=== PATIENT | female | born 1945 | race Asian ===

== ENCOUNTER 2016-09-27 13:22 | Outpatient (CLI) | payer MEDICARE ==
--- NOTE | 2016-09-28 13:15 | Mammography Report ---
DIGITAL SCREENING MAMMOGRAM: 09/27/2016 CLINICAL INDICATION: A 70-year-old nulliparous patient with history of benign left breast biopsy for screening. COMPARISON: 08/2015, 05/2014, 12/2011, 10/2010, 10/2009, 09/2008, 08/2007 TECHNIQUE: Routine CC and MLO projections were obtained of the breasts. FINDINGS: The breasts again demonstrate scattered fibroglandular densities bilaterally. Post-biopsy changes in the left upper outer quadrant are stable. A few punctate, typically benign calcification s are present. No suspicious masses, clustered microcalcifications, or regions of architectural dist ortion are identified. IMPRESSION: BENIGN FINDINGS. RECOMMENDATION: Routine annual screening unless otherwise clinically indicated. BIRADS CATEGORY 2 - BENIGN FINDINGS. STANDARD QUALIFYING STATEMENTS 1. This examination was reviewed with the aid of Computer-Aided Detection (CAD). 2. A negative or benign imaging report should not delay biopsy if clinically suspicious findings are present. Consider surgical consultation if warranted. More than 5% of cancers are not identified by i maging. 3. Dense breasts may obscure an underlying neoplasm. JOB #: [id number] EXT JOB #:[id number]
== END 2016-09-27 13:23 | disposition home or self-care (01) ==
LOC: DI.N 13:22
PROVIDERS: ATTEND Family Medicine
DX: Z12.31 Encounter for screening mammogram for malignant neoplasm of breast (principal)
CPT/HCPCS: 77067

== ENCOUNTER 2017-10-04 13:50 | Outpatient (CLI) | payer MEDICARE, OTHER ==
--- NOTE | 2017-10-04 14:41 | Mammography Report ---
Procedure Date: 10/04/2017 Accession Number: [id number] / [id number] Procedure: IRISH - Diagnostic Dig Bilat CPT Code: FULL RESULT: EXAM: Diagnostic Dig Bilat DATE: 10/04/2017 2:39 PM CLINICAL HISTORY: 71-year-old with diffuse left breast pain, history of benign left breast biopsy TECHNIQUE: Bilateral CC and MLO views, left true lateral view COMPARISON: 09/27/2016, 08/16/2015, 06/15/2014, 04/28/2013, 12/18/2011, 11/10/2010, 06/01/2010, 11/02/2009 FINDINGS: The breasts demonstrate heterogeneously dense fibroglandular parenchyma bilaterally. Punctate, typically benign calcifications are present. Biopsy marker in the left upper outer posterior breast is stable. No suspicious masses, clustered microcalcifications, or regions of architectural distortion are identified. IMPRESSION: Benign findings RECOMMENDATION: Recommend routine annual Screening mammography unless otherwise clinically indicated. BIRADS CATEGORY 2: Benign findings STANDARD QUALIFYING STATEMENTS: 1. This examination was reviewed with the aid of Computer-Aided Detection (CAD). 2. A negative or benign imaging report should not delay biopsy if clinically suspicious findings are present. Consider surgical consultation if warrented. More than 5% of cancers are not identified by imaging. 3. Dense breasts may obscure an underlying neoplasm.
== END 2017-10-04 13:51 | disposition home or self-care (01) ==
LOC: DI 13:50
PROVIDERS: ATTEND Family Medicine
DX: N64.4 Mastodynia (principal)
CPT/HCPCS: 77066

== ENCOUNTER 2018-03-14 06:06 | Day surgery (SDC) | payer MEDICARE, OTHER ==
[2018-03-14] MEDS ORDERED: PHENYLEPHRINE 2.5% OPHTH 2 ML DROPS ONE (06:30)
[2018-03-14] MEDS ORDERED: KETOROLAC 0.45% OPHTH DROPS ONE (06:30)
[2018-03-14] MEDS ORDERED: CYCLOPENTOLATE 1% OPHTH DROPS 2 ML ONE (06:31)
[2018-03-14] MEDS ORDERED: PROPARACAINE 0.5% OPHTH DROPS 15 ML ONE (06:31)
[2018-03-14] MEDS ORDERED: PHENYLEPHRINE 2.5% OPHTH 2 ML DROPS RIGHTEYE ONE (06:43)
[2018-03-14] MEDS ORDERED: PROPARACAINE 0.5% OPHTH DROPS 15 ML RIGHTEYE ONE ×2 (06:43→07:28)
[2018-03-14] MEDS ORDERED: KETOROLAC 0.45% OPHTH DROPS RIGHTEYE ONE (06:43)
[2018-03-14] MEDS ORDERED: CYCLOPENTOLATE 1% OPHTH DROPS 2 ML RIGHTEYE ONE (06:43)
[2018-03-14] MEDS ORDERED: TRIAMCIN/MOXIFLOX OPHTHALMIC 0.6 ML VIAL IO ONE ×3 (06:51→07:30)
[2018-03-14] MEDS ORDERED: EPINEPHrine 1 MG/ML AMP ONE (06:51)
[2018-03-14] MEDS ORDERED: BRIMONIDINE 0.2% OPHTH DROPS 5 ML ONE (06:52)
[2018-03-14] MEDS ORDERED: LACTATED RINGERS 500 ML IV ONE (06:52)
[2018-03-14] MEDS ORDERED: TIMOLOL 0.5% OPHTH DROPS ONE (06:52)
[2018-03-14] MEDS ORDERED: VANCOMYCIN OPHTHALMI 8MG/0.8ML 8 MG/0.8 ML SYRINGE IO ONE ×3 (06:52→07:29)
[2018-03-14] MEDS ORDERED: BSS/LIDOCAINE/EPINEPHRINE 1 ML SYRINGE ONE (06:52)
--- NOTE | 2018-03-14 06:59 | ANESTHESIA ---
Pre-Anesthesia VS, & Labs - Diagnosis Right eye senile combined cataract - Procedure Right eye cataract extraction with intraoocular lens implant Vital Signs: Temp Pulse Resp BP Pulse Ox 36.5 C 92 16 168/76 H 03/14/18 06:35 03/14/18 06:35 03/14/18 06:35 03/14/18 06:35 Height 5 ft Weight (kg) 63.3 kg - NPO >8 hours - Is Patient ?: No - Lab Results Current Lab Results: Laboratory Tests 03/14/18 06:49: POC Whole Bld Glucose 195 H Lab results reviewed: Yes Home Medications and Allergies Home Medications: Ambulatory Orders Metformin HCl 1,000 mg PO BID 03/14/18 glipiZIDE [Glipizide] 5 mg PO DAILY 03/14/18 Metformin HCl 1,000 mg PO BID 03/14/18 glipiZIDE [Glipizide] 5 mg PO DAILY 03/14/18 Allergies/Adverse Reactions: Allergies Allergy/AdvReac Type Severity Reaction Status Date / Time No Known Drug Allergies Allergy Verified 03/14/18 06:59 Anes History & Medical History - Anesthetic History Anesthesia Complications: reports: No previous complications - Medical History Cardiovascular: reports: None Pulmonary: reports: None Gastrointestinal: reports: GERD, Ulcers Urinary: reports: None Neuro: reports: None Musculoskeletal: reports: None Endocrine/Autoimmune: reports: Type 2 diabetes Blood Disorders: reports: None Skin: reports: None Smoking Status: Never smoker Psychosocial: reports: No issues indicated - Surgical History General: EGD Gynecologic: Tubal ligation, Hysterectomy, Oophrectomy Exam General: Alert, Oriented x3, Cooperative, No acute distress Dental: Partials Upper Mouth Openin Fingerbreadth Neck Mobility: Normal Mallampati classification: II Thyromental Distance: 4-6 cm Respiratory: Lungs clear, Normal breath sounds, No respiratory distress, No accessory muscle use Cardiovascular: Regular rate, Normal S1, Normal S2, No murmurs Mental/Cognitive Status: Alert/Oriented X3, Normal for patient Plan Anesthesia Type: MAC Consent for Procedure(s) Verified and Reviewed: Yes Code Status: Attempt Resuscitation ASA classification: 2-Mild systemic disease Is this case an emergency?: No
[2018-03-14] MEDS ORDERED: BRIMONIDINE 0.2% OPHTH DROPS 5 ML OPTH ONE (07:26)
[2018-03-14] MEDS ORDERED: TIMOLOL 0.5% OPHTH DROPS OPTH ONE (07:27)
[2018-03-14] MEDS ORDERED: EPINEPHrine 1 MG/ML AMP IR ONE (07:27)
[2018-03-14] MEDS ORDERED: CHONDR SULF/HYALURONATE SYRINGE IO ONE (07:27)
[2018-03-14] MEDS ORDERED: BSS/LIDOCAINE/EPINEPHRINE 1 ML SYRINGE IO ONE ×2 (07:27)
[2018-03-14] MEDS ORDERED: MIDAZOLAM 2 MG/2 ML VIAL IVP ONE (07:30)
[2018-03-14 08:04] VITALS: BP 146/65
--- NOTE | 2018-03-14 11:39 | OPERATIVE REPORT ---
DATE OF SERVICE: 03/14/2018 Physician: Huber Valdovinos MD PREOPERATIVE DIAGNOSIS: Visually significant cataract, right eye. This was her first cataract surge ry. POSTOPERATIVE DIAGNOSIS: Visually significant cataract, right eye. This was her first cataract surg anil. NAME OF PROCEDURE: Phacoemulsification with posterior chamber intraocular lens implant, right eye. SURGEON: Huber Valdovinos MD ANESTHESIA: Monitored anesthesia care. COMPLICATIONS: None. OPERATIVE INDICATIONS: This is a 72-year-old woman with progressive vision loss in the right eye due to 2+ nuclear sclerotic 3+ cortical and 3+ posterior subcapsular cataract. Best corrected visual ac uity was 20/25 with glare to hand motion vision. INDICATIONS FOR SURGERY: Overall decrease in vision and difficulty reading. She was consented at [facility] concerning risks and benefits of cataract surgery, after which she expressed a desire to proceed with surgery. OPERATIVE PROCEDURE: The patient was taken to OR #3 and placed under monitored anesthesia care. A s urgical timeout was conducted confirming correct patient, correct procedure, and correct surgical sit e. She was given topical anesthesia, and prepped and draped in the usual sterile fashion. The eye w as entered at the 12 and 9 o'clock positions. Intracameral Shugarcaine was injected into the anterio r chamber, followed by Viscoat. A continuous-tear curvilinear capsulorrhexis was performed. The nuc leus was hydrodissected and phacoemulsified. The cortex was evacuated using automated infusion and a spiration. Provisc was injected in the capsular bag, and a 22.0 diopter intraocular lens was inserte d in the bag. Approximately 0.8 mL of a mixture of triamcinolone, moxifloxacin, and vancomycin was i njected subconjunctivally in the superior quadrant for infection and inflammation prophylaxis. I and A, was used to evacuate the viscoelastic materials. The eye was inflated to physiologic pressure us ing balanced salt solution and found to be watertight. The patient was taken from the operating room in good condition and given postoperative instructions. TD: 03/14/2018 07:59
== END 2018-03-14 06:07 | disposition home or self-care (01) ==
LOC: SDS 06:06
PROVIDERS: ATTEND Ophthalmology
PROC: 08RJ3JZ Replacement of Right Lens with Synthetic Substitute, Percutaneous Approach (ICD-10-PCS; principal; 2018-03-14 07:30)
DX: H25.811 Combined forms of age-related cataract, right eye (principal); E11.9 Type 2 diabetes mellitus without complications
CPT/HCPCS: 66984; A9270; J3490; V2632

== ENCOUNTER 2019-02-24 14:04 | Outpatient (CLI) | payer MEDICARE, OTHER ==
--- NOTE | 2019-02-24 15:29 | Mammography Report ---
Reason: ROUTINE MAMMO Procedure Date: 02/24/2019 Accession Number: [id number] / [id number] Procedure: MGN - Screening Mammo Dig Bilat CPT Code: Final Report FULL RESULT: EXAM: Screening Mammo Dig Bilat DATE: 02/24/2019 2:36 PM CLINICAL HISTORY: The patient is a 73-year-old female with a personal history of left breast biopsy (benign pathology, by report). No reported personal or family history of breast cancer. TECHNIQUE: (B) - Bilateral CC and MLO views were obtained. COMPARISON: 10/04/2017, 09/27/2016, 08/16/2015, 06/15/2014 and 04/28/2013 PARENCHYMAL PATTERN: (A) - The breasts demonstrate scattered fibroglandular densities bilaterally. FINDINGS: The pattern of asymmetry is stable given positional variation. A microclip in the left breast corresponds to the site of prior benign biopsy. There are no suspicious masses, calcifications, or areas of distortion. There is no mammographic evidence of malignancy. IMPRESSION: Benign findings. BI-RADS category 2. RECOMMENDATION: (ANNUAL) - Recommend routine annual screening mammography. BI-RADS CATEGORY: (2) - Benign Findings. STANDARD QUALIFYING STATEMENTS: 1. This examination was not reviewed with the aid of Computer-Aided Detection (CAD). 2. A negative or benign imaging report should not preclude biopsy if clinically suspicious findings are present. 3. Dense breasts may obscure an underlying neoplasm.
== END 2019-02-24 14:05 | disposition home or self-care (01) ==
LOC: DI.N 14:04
PROVIDERS: ATTEND Family Medicine
DX: Z12.31 Encounter for screening mammogram for malignant neoplasm of breast (principal)
CPT/HCPCS: 77067

== ENCOUNTER 2020-03-11 03:00 | Emergency (ER) | payer MEDICARE, OTHER ==
--- NOTE | 2020-03-11 03:10 | ED Physician Documentation ---
History of Present Illness - Stated complaint Stated Complaint: HIGH BP - Chief complaint Chief Complaint: Cardiac - History obtained from History obtained from: Patient - History of Present Illness Timing: Today - Additonal information Additional information: 74-year-old diabetic female has a friend who was recently hospitalized with a stroke and she has begun checking her blood pressure more frequently. She is checking her blood pressure throughout the night this evening and she had noted it to be quite elevated. She does indicate that she gets up about every 2 hours to urinate and she did not have her fluid with her today at her bedside. The patient indicates that she has not otherwise been ill she denies any other specific symptoms and states that she does not specifically have symptoms today of anything specific other than her blood pressure being elevated. Review of Systems Constitutional: denies: Fever, Myalgias, Fatigue Eyes: denies: Decreased vision Ears: denies: Ear pain Nose: denies: Rhinorrhea / runny nose, Congestion Throat: denies: Sore throat Cardiac: denies: Chest pain / pressure, Palpitations Respiratory: denies: Dyspnea, Cough GI: denies: Abdominal Pain, Nausea, Vomiting, Constipation, Diarrhea : reports: Frequency. denies: Dysuria Skin: denies: Rash Musculoskeletal: denies: Neck pain, Back pain, Extremity pain Neurologic: denies: Generalized weakness, Focal weakness, Numbness Psychiatric: denies: Depressed Endocrine: reports: Polydypsia, Polyuria PD PAST MEDICAL HISTORY - Past Medical History Cardiovascular: None Respiratory: None Neuro: None Endocrine/Autoimmune: Type 2 diabetes GI: GERD, Ulcers : None HEENT: None Psych: Anxiety, Claustrophobia Musculoskeletal: None Derm: None - Past Surgical History General: EGD /MILL MACHINIST: Tubal ligation, Hysterectomy, Oophrectomy - Present Medications Home Medications: Ambulatory Orders Medication Instructions Recorded Confirmed Metformin HCl 1,000 mg PO BID 03/14/18 03/14/18 glipiZIDE [Glipizide] 5 mg PO DAILY 03/14/18 03/14/18 - Allergies Allergies/Adverse Reactions: Allergies Allergy/AdvReac Type Severity Reaction Status Date / Time No Known Drug Allergies Allergy Verified 03/14/18 06:59 - Social History Smoking Status: Never smoker PD ED PE NORMAL - Vitals Vital signs reviewed: Yes (Tachycardic and hypertensive) - General General: Alert and oriented X 3, No acute distress, Well developed/nourished - HEENT HEENT: Atraumatic, PERRL, EOMI, Other (Dry mucous membranes) - Neck Neck: Supple, no meningeal sign, No bony TTP - Cardiac Cardiac: RRR, No murmur - Respiratory Respiratory: No respiratory distress, Clear bilaterally - Abdomen Abdomen: Normal bowel sounds, Soft, Non tender, Non distended, No organomegaly - Back Back: No CVA TTP, No spinal TTP - Derm Derm: Normal color, Warm and dry, No rash - Extremities Extremities: No deformity, No edema - Neuro Neuro: Alert and oriented X 3, 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, No motor deficit, No sensory deficit, Normal speech Eye Opening: Spontaneous Motor: Obeys Commands Verbal: Oriented GCS Score: 15 - Psych Psych: Normal mood, Normal affect Results - Vitals Vitals: Vital Signs - 24 hr 03/11/20 03/11/20 03:03 05:00 Temperature 36.7 C Heart Rate 109 H 88 Respiratory 22 19 Rate Blood Pressure 209/106 H 155/72 H O2 Saturation 97 96 Oxygen O2 Source Room air - EKG (time done) 0350 Rate: Rate (enter#) (98) Rhythm: NSR [place]: LAD QRS: LVH Compare to prior EKG: Old EKG unavailable Computer interpretation: Agree with computer - Labs Labs: Laboratory Tests 03/11/20 03/11/20 03/11/20 03:55 03:55 03:55 WBC 8.7 RBC 4.11 L Hgb 13.3 Hct 39.8 MCV 96.8 MCH 32.4 H MCHC 33.4 RDW 12.0 Plt Count 281 MPV 10.1 Neut # (Auto) 6.0 Lymph # (Auto) 2.0 [place] # (Auto) 0.6 Eos # (Auto) 0.0 Baso # (Auto) 0.0 Absolute Nucleated RBC 0.00 Nucleated RBC % 0.0 Sodium 137 Potassium 3.9 Chloride 101 Carbon Dioxide 26 Anion Gap 10.0 BUN 19 Creatinine 0.8 Estimated GFR (MDRD) 70 L Glucose 299 H POC Whole Bld Glucose Lactic Acid 1.5 Calcium 9.7 Total Bilirubin 1.0 AST 31 ALT 54 Alkaline Phosphatase 60 Total Protein 7.7 Albumin 4.1 Globulin 3.6 Albumin/Globulin Ratio 1.1 Lipase 33 Urine Color Urine Clarity Urine pH Ur Specific [place] Urine Protein Urine Glucose (UA) Urine Ketones Urine Occult Blood Urine Nitrite Urine Bilirubin Urine Urobilinogen Ur Leukocyte Esterase Ur Microscopic Review Urine Culture Comments 03/11/20 03/11/20 04:15 06:43 WBC RBC Hgb Hct MCV MCH MCHC RDW Plt Count MPV Neut # (Auto) Lymph # (Auto) [place] # (Auto) Eos # (Auto) Baso # (Auto) Absolute Nucleated RBC Nucleated RBC % Sodium Potassium Chloride Carbon Dioxide Anion Gap BUN Creatinine Estimated GFR (MDRD) Glucose POC Whole Bld Glucose 266 H Lactic Acid Calcium Total Bilirubin AST ALT Alkaline Phosphatase Total Protein Albumin Globulin Albumin/Globulin Ratio Lipase Urine Color YELLOW Urine Clarity CLEAR Urine pH 5.0 Ur Specific [place] 1.010 Urine Protein NEGATIVE Urine Glucose (UA) >=1000 H Urine Ketones NEGATIVE Urine Occult Blood NEGATIVE Urine Nitrite NEGATIVE Urine Bilirubin NEGATIVE Urine Urobilinogen 0.2 (NORMAL) Ur Leukocyte Esterase NEGATIVE Ur Microscopic Review NOT INDICATED Urine Culture Comments NOT INDICATED Procedures - IVC sono (time) 0324 Bedside IVC sono: IVC measures (cm) (0.82), IVC collapsed c insp (cm) (complete), Dehydration (est 2 liter deficit) PD MEDICAL DECISION MAKING - ED course Complexity details: reviewed old records, reviewed results, re-evaluated patient, considered differential, d/w patient ED course: 74-year-old diabetic female presents to the emergency department today with elevated blood pressure. She is otherwise has sparse symptoms and nothing specific as far as hypertensive emergency. She is found to be significantly dehydrated on interrogation the inferior vena cava and this is suspected to be due to her diabetes with sugar over 250 and she does have glucose in her urine as well. She is hydrated with saline. After 2 liters her glucose is 260 and she is given 10units of regular insulin IV. At shift change she has received 10 units of regular insulin IV and results of a second finger stick glucose is pending. Departure - Departure Clinical Impression: Dehydration Hyperglycemia due to type 2 diabetes mellitus Qualifiers: Diabetes mellitus manager intermediate insulin use: without senior care use Qualified Code(s): E11.65 - Type 2 diabetes mellitus with hyperglycemia Condition: Stable Instructions: ED Hyperglycemia Diabetic, ED Dehydration Follow-Up: Huber Simental MD [Primary Care Provider] -
[2020-03-11] MEDS ORDERED: SODIUM CHLORIDE 0.9% 1,000 ML IV STA ×2 (03:47→04:30)
[2020-03-11 04:15] LABS: ALBUMIN 4.1 g/dL (3.2-5.5); ALBUMIN/GLOBULIN RATIO 1.1 (1.0-2.2); CALCIUM 9.7 mg/dL (8.5-10.3); CREATININE 0.8 mg/dL (0.4-1.0); TOTAL PROTEIN 7.7 g/dL (6.7-8.2)
[2020-03-11 04:25] LABS: BASOPHILS % (AUTO) 0.5 %; EOSINOPHILS % (AUTO) 0.5 %; HGB - HEMOGLOBIN 13.3 g/dL (12.0-16.0); LYMPHOCYTES % (AUTO) 23.4 %; MEAN CORPUSCULAR HEMOGLOBIN 32.4 pg (27.0-31.0); MEAN CORPUSCULAR HGB CONC 33.4 g/dL (32.0-36.0); MEAN CORPUSCULAR VOLUME 96.8 fL (81.0-99.0); MEAN PLATELET VOLUME 10.1 fL (7.9-10.8); MONOCYTES # (AUTO) 0.6 10^3/uL (0.0-1.0); MONOCYTES % (AUTO) 6.9 %; NEUTROPHILS % (AUTO) 68.5 %; PLT - PLATELET COUNT 281 10^3/uL (130-450); RED BLOOD COUNT 4.11 10^6/uL (4.20-5.40); WHITE BLOOD COUNT 8.7 x10^3/uL (4.8-10.8)
[2020-03-11 04:31] LABS: BILIRUBIN,URINE NEGATIVE (NEGATIVE); GLUCOSE, URINE (UA) >=1000 mg/dL (NEGATIVE); KETONES,URINE (UA) NEGATIVE (NEGATIVE); LEUKOCYTE ESTERASE, URINE NEGATIVE (NEGATIVE); NITRITE,URINE NEGATIVE (NEGATIVE); OCCULT BLOOD,URINE NEGATIVE (NEGATIVE); PROTEIN,URINE NEGATIVE (NEGATIVE); UROBILINOGEN,URINE 0.2 (NORMAL) E.U./dL (NORMAL)
[2020-03-11 04:32] LABS: CLARITY,URINE CLEAR (CLEAR)
[2020-03-11] MEDS ORDERED: INSULIN REGULAR HUMAN 100 UNIT/1 ML 10 ML MDV IVP STA (07:07)
[2020-03-11 10:03] VITALS: BP 140/62
== END 2020-03-11 10:13 | disposition home or self-care (01) ==
LOC: ED 03:00
DX: E86.0 Dehydration (principal); E11.65 Type 2 diabetes mellitus with hyperglycemia; Z79.84 Long term (current) use of oral hypoglycemic drugs; R03.0 Elevated blood-pressure reading, without diagnosis of hypertension; R00.0 Tachycardia, unspecified
CPT/HCPCS: 36415; 80053; 81003; 83605; 83690; 85025; 93005; 96360; 96361; 99284; J1815; 81001; 87086

== ENCOUNTER 2020-05-11 14:50 | Outpatient (CLI) | payer MEDICARE, OTHER ==
--- NOTE | 2020-05-12 12:29 | Mammography Report ---
BILATERAL DIGITAL SCREENING MAMMOGRAM 3D/2D: 05/11/2020 CLINICAL: Routine screening. Comparison is made to exams dated: 02/24/2019 mammogram, 10/04/2017 mammogram, 09/27/2016 mammogram, an d 08/16/2015 mammogram - [facility]. There are scattered fibroglandular elements in both breasts. There is a biopsy clip in the left breast. No significant masses, calcifications, or other findings are seen in either breast. There has been no significant interval change. IMPRESSION: NEGATIVE There is no mammographic evidence of malignancy. A 1 year screening mammogram is recommended. This exam was interpreted at Station ID: [id number]. NOTE: For mammograms, a report in lay terms will be sent to the patient. Approximately 15% of breast malignancies will not be visualized mammographically. In the management of a palpable breast mass, a negative mammogram must not discourage biopsy of a clinically suspicious lesion. Electronically Signed By: Elsa melendez/jose arad:05/11/2020 17:33:24 ACR BI-RADS Category 1: Negative 3341F PARENCHYMAL PATTERN: (A) - The breast(s) demonstrate(s) scattered fibroglandular densities. BI-RADS CATEGORY: (1) - 1 RECOMMENDATION: (ANNUAL) - Recommend routine annual screening mammography. [id number] 1 year screening LATERALITY: (B)
== END 2020-05-11 14:51 | disposition home or self-care (01) ==
LOC: DI.N 14:50
PROVIDERS: ATTEND Family Medicine
DX: Z12.31 Encounter for screening mammogram for malignant neoplasm of breast (principal)

== ENCOUNTER 2021-09-22 12:41 | Outpatient (CLI) | payer MEDICARE, OTHER ==
--- NOTE | 2021-09-23 08:23 | Mammography Report ---
BILATERAL DIGITAL SCREENING MAMMOGRAM 3D/2D: 09/22/2021 CLINICAL: Routine screening. Comparison is made to exams dated: 05/11/2020 mammogram, 02/24/2019 mammogram, and 10/04/2017 mammogram - [facility]. There are scattered fibroglandular elements in both breasts. There is a biopsy clip in the left breast. No significant masses, calcifications, or other findings are seen in either breast. There has been no significant interval change. IMPRESSION: NEGATIVE There is no mammographic evidence of malignancy. A 1 year screening mammogram is recommended. This exam was interpreted at Station ID: [id number]. NOTE: For mammograms, a report in lay terms will be sent to the patient. Approximately 15% of breast malignancies will not be visualized mammographically. In the management of a palpable breast mass, a negative mammogram must not discourage biopsy of a clinically suspicious lesion. Electronically Signed By: Konrad Ramirez M.D. ar/penrad:09/22/2021 15:22:51 ACR BI-RADS Category 1: Negative 3341F PARENCHYMAL PATTERN: (A) - The breast(s) demonstrate(s) scattered fibroglandular densities. BI-RADS CATEGORY: (1) - 1 RECOMMENDATION: (ANNUAL) - Recommend routine annual screening mammography. [id number] 1 year screening LATERALITY: (B)
== END 2021-09-22 12:42 | disposition home or self-care (01) ==
LOC: DI.N 12:41
PROVIDERS: ATTEND Family Medicine
DX: Z12.31 Encounter for screening mammogram for malignant neoplasm of breast (principal)

== ENCOUNTER 2023-11-22 12:14 | Outpatient (CLI) | payer MEDICARE, OTHER ==
--- NOTE | 2023-11-22 17:41 | XRAY Report ---
PROCEDURE: Chest 2V INDICATIONS: UPPER RESPIRATORY INFECTION TECHNIQUE: 2 views of the chest were acquired. COMPARISON: None. FINDINGS: Surgical changes and devices: None. Lungs and pleura: No pleural effusions or pneumothorax. Lungs are clear. Mediastinum: Mediastinal contours appear normal. Heart size is normal. Bones and chest wall: No suspicious bony lesions. Overlying soft tissues appear unremarkable. IMPRESSION: No acute cardiopulmonary process. Reviewed by: Socorro Mathew MD on 11/22/2023 5:40 PM PDT Approved by: Socorro Mathew MD on 11/22/2023 5:40 PM PDT Station ID: [id number]
== END 2023-11-22 12:15 | disposition home or self-care (01) ==
LOC: DI.N 12:14
PROVIDERS: ATTEND Physician Assistant Medical
DX: J06.9 Acute upper respiratory infection, unspecified (principal)